=== PATIENT | female | born 1980 | race Caucasian/White ===

== ENCOUNTER 2023-02-12 18:42 | Emergency (ER) | payer OTHER, SELFPAY ==
[2023-02-12 18:48] VITALS: BP 145/81; PULSE 110; RESP 17; TEMP 36.3; O2SAT 99
--- NOTE | 2023-02-12 19:22 | ED.GENADULT ---
HPI - General Adult General Chief complaint: Dental/Oral Stated complaint: toothache Time Seen by Provider: 02/12/23 18:54 Source: patient Mode of arrival: ambulatory Limitations: no limitations History of Present Illness HPI narrative: Complains of a left upper toothache since yesterday she said she had a tooth filling fall out. Taken Tylenol Aleve. Denies any fever shortness of breath cough. She has had a little bit of a runny nose. No problems eating drinking stooling or voiding rash or itching swelling lumps or bumps bleeding or bruising. Denies any other complaints. Related Data Home Medications Medication Instructions Recorded Confirmed Unable to Obtain Home Medications 02/12/23 02/12/23 Allergies Allergy/AdvReac Type Severity Reaction Status Date / Time nitrofurantoin Allergy Anaphylaxis Verified 02/12/23 18:47 [From Macrobid] Exam Narrative: White female no apparent distress.? Head normocephalic, atraumatic.? Eyes conjunctiva pink sclera nonicteric.? Extraocular movements are intact.? Ears externally normal.? Oropharynx Tooth DKA of the left upper premolar on down to the gum line with tenderness. Moist mucous membranes without exudates.? Neck is supple nontender no lymphadenopathy.? .? Lungs are clear.? Heart is regular rate and rhythm without murmurs gallops or rubs.? ? Skin is warm and dry without rashes or lesions.? Neurological patient is alert and oriented x4.? Motor and sensory grossly intact.? Gait is normal. Course Vital Signs Vital signs: Vital Signs Temperature 36.3 C L 02/12/23 18:48 Pulse Rate 110 H 02/12/23 18:48 Respiratory Rate 17 02/12/23 18:48 Blood Pressure 145/81 H 02/12/23 18:48 Pulse Oximetry 99 02/12/23 18:48 Oxygen Delivery Room Air 02/12/23 18:48 Temperature 36.3 C L 02/12/23 18:48 Pulse Rate 110 H 02/12/23 18:48 Respiratory Rate 17 02/12/23 18:48 Blood Pressure 145/81 H 02/12/23 18:48 Pulse Oximetry 99 02/12/23 18:48 Oxygen Delivery Room Air 02/12/23 18:48 Medical Decision Making MDM Narrative Medical decision making narrative: Independent Historian: ? patient only Differential Dx includes but not limited to:? abscess to dental caries Medications were Reviewed:? ?? yes Independently Interpreted by me:? ?? External Source Review:? ? Social Situation Impacting Patients Care:? ? Shared decision Making:?? evaluation was discussed all questions were asked and patient agreed on plan Discussed with ? DISCHARGE DIAGNOSIS:? ? abscess tooth DISPOSITION:? ? discharge CONDITION AT DISCHARGE:? stable Vital Signs Vital Signs: Vital Signs Temperature 36.3 C L 02/12/23 18:48 Pulse Rate 110 H 02/12/23 18:48 Respiratory Rate 17 02/12/23 18:48 Blood Pressure 145/81 H 02/12/23 18:48 Pulse Oximetry 99 02/12/23 18:48 Oxygen Delivery Room Air 02/12/23 18:48 Temperature 36.3 C L 02/12/23 18:48 Pulse Rate 110 H 02/12/23 18:48 Respiratory Rate 17 02/12/23 18:48 Blood Pressure 145/81 H 02/12/23 18:48 Pulse Oximetry 99 02/12/23 18:48 Oxygen Delivery Room Air 02/12/23 18:48 Discharge Plan Discharge Clinical Impression: Dental abscess Patient Disposition: Home, Self-Care Condition: Stable Instructions: Antibiotic Form, Dental Abscess (ED) Additional Instructions: pen VK 500 twice a day for 10 days. Medrol every 6 hours as needed for pain. Tylenol And ibuprofen as needed for pain. Dental balls every 2-3 hours as needed for pain. Follow-up with dentist and your family Medical provider as needed for further pain medication. Prescriptions: No Action Unable to Obtain Home Medications Follow-up/Referrals: Ghassan,MD Ang [Primary Care Provider] - Stand Alone Forms: Work/School Release IP
[2023-02-12] MEDS: traMADol HCL (*CRX) 50 MG TABLET PO (19:38)
[2023-02-12] MEDS: PENICILLIN V POTASSIUM 250 MG TABLET 500 MG PO (19:39)
[2023-02-12] MEDS: BENZOCAINE/TETRACAINE SPRAY (*SP) 56 ML AEROSOL 2 SPRAY MUCOUS MEM (19:40)
[2023-02-12] MEDS: MAG HYDROX/ALUMINUM HYD/SIMETH 30 ML, PHENobarb/HYOSCY/ATROPINE/SCOP 32.4 MG, LIDOCAINE... PO (19:42)
[2023-02-12 19:53] VITALS: BP 134/94; PULSE 94; RESP 18; O2SAT 99
== END 2023-02-12 19:54 | disposition home or self-care (01) ==
PROVIDERS: Emergency Provider Emergency Medicine; PCP Family Medicine
DX: K04.7 Periapical abscess without sinus (principal)
CPT/HCPCS: 99283; A9270

== ENCOUNTER 2023-06-01 09:56 | Outpatient (CLI) | payer OTHER, SELFPAY ==
--- NOTE | ~2023-06-01 | MR_ITS ---
MRI of the brain Clinical History: Headache Technique: Axial and sagittal T1-weighted images were acquired. These were followed by axial T2-weigh jeormy, diffusion weighted, gradient, and FLAIR images. Findings: No abnormal signal seen in the brain parenchyma. No acute infarct, intracranial hemorrhage or mass lesion. Ventricles and subarachnoid spaces are unremarkable. Orbits are unremarkable. Paranasal sinuses and m astoid air cells are clear. Major intracranial flow voids are intact. Sagittal midline structures are intact. IMPRESSION: Unremarkable exam. Reviewed, dictated and finalized at location M. IMPRESSION: Unremarkable exam.
== END 2023-06-01 09:57 | disposition home or self-care (01) ==
LOC: CHSIMG 09:57
PROVIDERS: PCP Family Medicine; Visit Provider Physician Assistant
DX: R51.9 Headache, unspecified (principal)
CPT/HCPCS: 70551

== ENCOUNTER 2023-09-02 11:33 | Emergency (ER) | payer OTHER, SELFPAY ==
--- NOTE | ~2023-09-02 | CT_ITS ---
EXAMINATION: CT abdomen pelvis w con DATE: 09/02/2023 13:39 INDICATION: Abdominal pain TECHNIQUE: Computed tomography (CT) of the abdomen and pelvis was performed with 100 cc Omnipaque 350 intravenous contrast. The dose-length product was 1253.86 mGy-cm. Automated exposure control and ite rative reconstruction technique were employed. COMPARISON: None. FINDINGS: Lung bases are unremarkable. Heart size normal. No significant vascular abnormality. No lym phadenopathy. No free air or free fluid. There is ventral abdominal wall hernia at the umbilicus cont aining fat. No bowel obstruction. The liver, spleen, pancreas, adrenal glands and kidneys are unremar kable. There is a small accessory splenule. There is a 1.6 cm follicle of the left ovary. No abnormal pelvic masses or fluid collections. Accentuated lumbar lordosis. No acute osseous abnormality. IMPRESSION: 1. No acute abdominal abnormality. Reviewed, dictated and finalized at location A. E STITCHER
[2023-09-02 11:35] VITALS: BP 125/82; PULSE 109; RESP 20; TEMP 36.7; O2SAT 100
[2023-09-02 12:03] LABS: Basophils Absolute Auto 0.07 K/mm3 (0.00-0.10); Basophils Percent Auto 0.6 % (0.0-1.0); Eosinophils Absolute Auto 0.26 K/mm3 (0.02-0.50); Eosinophils Percent Auto 2.2 % (1.0-6.0); Hemoglobin 11.8 g/dL (12.0-15.0); Immature Granulocyte Absolute 0.07 K/mm3 (0.00-0.00); Immature Granulocyte Percent A 0.6 % (0.0-0.0); Lymphocytes Absolute Auto 2.74 K/mm3 (1.10-4.50); Lymphocytes Percent Auto 23.2 % (18.0-42.0); Mean Corpuscular HGB Conc 30.3 g/dL (32.0-36.0); Mean Corpuscular Hemoglobin 24.3 pg (27.0-31.0); Mean Corpuscular Volume 80.4 fL (78.0-102.0); Mean Platelet Volume 11.4 fl (9.2-11.8); Monocytes Absolute Auto 0.68 K/mm3 (0.10-0.90); Monocytes Percent Auto 5.8 % (2.0-11.0); Neutrophils Percent Auto 67.6 % (50.0-70.0); Nucleated Red Blood Cells Absolute Auto 0.04 K/mm3 (0.00-0.00); Nucleated Red Blood Cells Perc 0.3 % (0-0.0); Platelet Count Result 292 K/mm3 (150-420); Red Blood Count 4.85 M/mm3 (4.20-5.40); Red Cell Distribution Width 15.5 % (11.6-14.4); White Blood Count 11.8 K/mm3 (4.8-10.8)
[2023-09-02 12:16] LABS: Alanine Aminotransferase 20 U/L (14-59); Albumin Level 3.4 g/dL (3.4-5.0); Alkaline Phosphatase 166 U/L (46-116); Amylase 44 U/L (25-115); Anion Gap 7 mmol/L (8-16); Aspartate Amino Transferase 14 U/L (15-37); Bilirubin,Total 0.3 mg/dL (0.00-1.00); Blood Urea Nitrogen 13 mg/dL (7-18); Calcium 9.3 mg/dL (8.5-10.1); Carbon Dioxide 27 mmol/L (21-32); Chloride 100 mmol/L (98-108); Estimated CRCL calculation 86 ml/min; Estimated Glomerular Filt Rate > 60; Glucose 101 mg/dL (70-99); Lipase 38 U/L (16-77); Osmolality Calculated 278 mOsm/kg (285-295); Potassium 4.1 mmol/L (3.5-5.1); Sodium 134 mmol/L (136-145); Total Protein 8.2 g/dL (6.4-8.2)
--- NOTE | 2023-09-02 12:20 | ED.ABDPAIN ---
HPI - Abdominal Pain General Chief Complaint: Abdominal Pain Stated Complaint: abd pain nausea Source: patient Mode of arrival: ambulatory History of Present Illness HPI narrative: 43-year-old female presents with -- abdominal distension/ bloating followed by vomiting and relief of symptoms. This has been going on for the past few days. No fever or chills. No abdominal pain. Onset (ago): day(s) Pain Consistency: constant Location: diffuse Severity: mild Quality: fullness Radiation: none Migration to: no migration Exacerbating factors: nothing Relieving factors: nothing Associated symptoms: denies other symptoms, nausea and vomiting Related Data Date of Last Menstrual Period: 08/12/23 Patient : No Home Medications Medication Instructions Recorded Confirmed amitriptyline 100 mg tablet 100 mg PO HS 09/02/23 09/02/23 amitriptyline 25 mg tablet 25 mg PO HS 09/02/23 09/02/23 atorvastatin 20 mg tablet 20 mg PO HS 09/02/23 09/02/23 Allergies Allergy/AdvReac Type Severity Reaction Status Date / Time nitrofurantoin Allergy Anaphylaxis Verified 02/12/23 18:47 [From Macrobid] Review of Systems Review of Systems: All systems reviewed & are unremarkable except as noted in HPI and below Constitutional: Constitutional: Reports as per HPI and Reports no additional constitutional complaints Eyes: Eyes: Reports as per HPI and Reports no additional eye complaints ENT: Reports system reviewed and no additional complaints, except as documented and Reports as per HPI Cardiovascular: Cardiovascular: Reports as per HPI and Reports no additional cardiovascular complaints Respiratory: Respiratory: Reports as per HPI and Reports no additional respiratory complaints Gastrointestinal: Gastrointestinal: Reports as per HPI, Reports no additional gastrointestinal complaints and Reports bloating Genitourinary: Genitourinary: Reports no additional female genitourinary complaints and Reports as per HPI Musculoskeletal: Musculoskeletal: Reports no additional musculoskeletal complaints and Reports as per HPI Integumentary/Breasts: Skin/Breast: Reports system reviewed and no additional complaints, except as docu and Reports as per HPI Neurologic: Reports system reviewed and no additional complaints, except as documented and Reports as per HPI Psychiatric: Psychiatric: Reports no additional psychiatric complaints and Reports as per HPI Endocrine: Endocrine: Reports no additional endocrine complaints and Reports as per HPI Hematologic/Lymphatic: Hematologic/Lymphatic: Reports no additional hematologic/lymphatic complaints and Reports as per HPI Allergic/Immunologic: Allergic/Immunologic: Reports no additional allergic/immunologic complaints and Reports as per HPI Exam Const: General: healthy appearing and no acute distress Nutritional Appearance: well nourished Orientation/consciousness: patient oriented x3 Limitations: no limitations HENMT: Head: normal to inspection Ears: external ears normal Face/Nose/Sinus: Normal external nose present Face and sinus: normal facial exam Mouth: Yes Normal oral and palatal mucosa present Throat: posterior oropharynx normal Eyes: Conjunctivae: conjunctivae normal Pupils: Equal, round and reactive pupils present EOM: EOMs intact bilaterally Direct Ophthalmoscopy: no photophobia Neck: Neck: normal visual inspection, no lymphadenopathy and no meningeal signs Chest: Chest palpation & inspection: normal inspection of the chest Resp: Effort & Inspection: normal respiratory effort Auscultation: clear to auscultation bilaterally Cardio: Rate: regular rate Rhythm: regular rhythm GI: GI Palp: Yes Soft to palpation Auscultation: normal bowel sounds : General: Yes no CVA tenderness Back/Spine/Pelvis: Back: no CVA tenderness Skin: General skin exam: normal color Rashes: no rashes Wounds: no wounds Neuro: General: patient oriented x3, moves all extremities, no meningeal signs
[2023-09-02 13:04] LABS: Appearance Urine Clear (Clear); Bilirubin Urine Negative (Negative); Blood Urine 1+ (Negative); Color Urine Light Yellow (Yellow); Glucose Urine UA Negative (Negative); Ketones Urine Negative (Negative); Leukocyte Esterase Ur Negative LEU/UL (Negative); Nitrate Urine Negative (Negative); Protein Urine Negative (Negative); Urobilinogen Urine 0.2 mg/dL (0.2-1.0)
[2023-09-02 13:08] LABS: Add Urine Microscopic? YES; Bacteria Urine 1+ /hpf; Squamous Epithelial Cell Urine Few /hpf (Few); WBC Urine None seen /hpf (0-3)
[2023-09-02 13:11] LABS: Lactic Acid Reflex 1.4 mmol/L (0.4-2.0)
[2023-09-02] MEDS: LACTATED RINGERS 500 ML 999 ML IV CONT (13:23)
[2023-09-02 14:12] VITALS: BP 118/72; PULSE 78; RESP 20; TEMP 37.1; O2SAT 98
== END 2023-09-02 14:14 | disposition home or self-care (01) ==
PROVIDERS: Emergency Provider Internal Medicine Critical Care Medicine; PCP Family Medicine
DX: R14.0 Abdominal distension (gaseous) (principal); Z79.899 Other long term (current) drug therapy
CPT/HCPCS: 36415; 74177; 80053; 81001; 82150; 83605; 83690; 85025; 96360; 99284; J7120; Q9967